=== PATIENT | female | born 1960 | race Caucasian/White ===

== ENCOUNTER → 2020-01-17 | Outpatient (CLI) | payer OTHER | END | disposition home or self-care (01) | LOC: LAB 13:23 | PROVIDERS: ATTEND Internal Medicine Gastroenterology | DX: Z11.59 Encounter for screening for other viral diseases (principal) | CPT/HCPCS: C9803; U0003 ==

== ENCOUNTER → 2020-01-21 | Day surgery (SDC) | payer OTHER ==
[~2020-01-21] MED LIST: IV RINGERS,LACTATED 1000ML 1,000 ML IV ONE; LIDOCAINE 2% PF 5 ML VIAL. ONE; PROPOFOL 10 MG/ML (20ML) VIAL. IV ONE
[2020-01-21 10:52] VITALS: BP 137/65
--- NOTE | 2020-01-21 11:07 | PREOP HP ---
DATE OF SERVICE: 01/21/2020 REQUESTING PHYSICIAN: Earnest Grubbs. PRIMARY CARE PHYSICIAN: Earnest Grubbs. REASON FOR PROCEDURE: Colorectal cancer screening. HISTORY OF PRESENT ILLNESS: This is a 59-year-old woman who presents for colorectal cancer screening. Her prior colonoscopy was in 2009. She denies any family history of colon cancer. ALLERGIES: No known drug allergies. PAST MEDICAL HISTORY: 1. Anxiety. 2. Breast cancer. 3. Depression. 4. Reflux. FAMILY MEDICAL HISTORY: No colorectal cancer. MEDICATIONS: MAR reviewed. REVIEW OF SYSTEMS: A 13-point review of systems was done and is positive as per HPI and otherwise negative. PHYSICAL EXAMINATION: VITAL SIGNS: She is afebrile. Vital signs are stable. GENERAL: She is a well-developed, well-nourished female, in no apparent distress. HEENT: Oropharynx is clear. CARDIOVASCULAR: S1, S2. LUNGS: Clear. ABDOMEN: Normoactive bowel sounds, soft, nontender, nondistended. EXTREMITIES: No edema. NEUROLOGIC: Awake, alert and oriented x 3. ASSESSMENT AND PLAN: Colorectal cancer screening. The risks and benefits of procedure including bleeding, perforation, non-diagnosis and sedation were explained, she has agreed to proceed. DIMITRY LO MD DR: YAZ/elliot JOB#: [id number] / [id number]
--- NOTE | 2020-01-22 15:07 | PATHOLOGY ---
[facility] Accession Number: [id number] . 01 Material submitted: . PART A: colon - DESCENDING COLON POLYP BX. Modifiers: descending PART B: sigmoid colon - SIGMOID COLON POLYP BX . 01 Clinical history: . Screening colon . 02 Diagnosis: A. Colon biopsies, descending colon polyp: - Hyperplastic polyp. . B. Colon biopsy, sigmoid colon polyp: - Hyperplastic polyp. ([facility] 01/22/2020 0858 Local . 02 Comment: There are no adenomatous changes or evidence of malignancy. ([facility] 01/[facility]) . 02 Electronically signed: . Karthik Simpson MD, Pathologist NPI- [id number] . 01 Gross description: . A. The specimen is received in formalin, labeled "Homer, Maria Antonia, descending colon polyp BX" and consists of 2 fragments of pink-rea tissue measuring 0.4 x 0.2 cm and 0.6 x 0.3 cm which are entirely submitted in A1. . B. The specimen is received in formalin, labeled "Moclips, Maria Antonia, sigmoid polyp BX" and consists of a fragment of pink-rea tissue measuring 0.5 x 0.4 cm which is entirely submitted in B1. ([facility]; 01/21/2020) [facility] 01/22/2020 0959 Local . 02 Pathologist provided ICD-10: K63.5, Z12.11 . 02 CPT . 517857, 872009 Specimen Comment: A courtesy copy of this report has been sent to [phone] Specimen Comment: [id number] Specimen Comment: Report sent to / DR WATKINS Performed at: [address] [place], [place] [id number] [facility] [address], [place], [place] [id number] MD Brady Waters MD Phone: [phone] Performed at: [address] [id number] MD Karthik Simpson MD Phone: [phone]
== END ==
LOC: SURG 08:42 → EDUNIT# 09:30
PROVIDERS: ATTEND Internal Medicine Gastroenterology
DX: Z12.11 Encounter for screening for malignant neoplasm of colon (principal); K63.5 Polyp of colon; K64.0 First degree hemorrhoids; K21.9 Gastro-esophageal reflux disease without esophagitis; K58.9 Irritable bowel syndrome, unspecified; F41.9 Anxiety disorder, unspecified; F32.9 Major depressive disorder, single episode, unspecified; F15.90 Other stimulant use, unspecified, uncomplicated; Z72.89 Other problems related to lifestyle; Z91.040 Latex allergy status; Z85.3 Personal history of malignant neoplasm of breast
CPT/HCPCS: 45380; 88305; J2704; J3490